=== PATIENT | male | born 1995 | race Caucasian/White ===

== ENCOUNTER 2019-03-28 01:18 | Emergency (ER) | payer OTHER ==
[~2019-03-28] VITALS: Ht 172.7 cm; Wt 76.4 kg
[2019-03-28 01:27] VITALS: BP 148/88; TEMP 97
[2019-03-28 03:21] LABS: BASO # 0.1 (0.0-0.2); BASO % 0.9 % (0.0-2.0); EOS # 0.2 (0.0-0.7); EOS % 2.8 % (0-4.0); GRAN # 3.2 (1.4-6.5); GRAN % 56.1 % (42.2-75.2); HEMATOCRIT 45.8 % (42.0-52.0); HEMOGLOBIN 16.1 g/dl (13.5-18.0); LYMPH # 1.7 (1.2-3.4); LYMPH % 29.4 % (20.0-51.0); MEAN CELL VOLUME 86 fl (80.0-100.0); MEAN CORPUSCULAR HEMOGLOBIN 30 pg (27.0-31.0); MEAN CORPUSCULAR HGB CONC 35 g/dl (33.0-37.0); MEAN PLATELET VOLUME 10.1 fl (7.4-10.4); MONO # 0.6 (0.1-0.6); MONO % 10.4 % (1.7-9.3); PLATELET COUNT 225 K/mm3 (130-400); REDCELL DISTRIBUTION WIDTH-CV 12.5 % (11.5-14.5)
[2019-03-28 03:27] LABS: ALBUMIN 4.7 gm/dL (3.5-5.0); BILIRUBIN,TOTAL 1.3 mg/dL (0.0-1.0); CALCIUM 9.2 mg/dL (8.4-10.2); CREATININE, serum 0.89 (0.66-1.25); POTASSIUM 4.2 mmol/L (3.4-5.0); TOTAL PROTEIN 7.5 gm/dL (6.4-8.2)
[2019-03-28 04:55] VITALS: PULSE 80
== END 2019-03-28 04:55 | disposition home or self-care (01) ==
LOC: COL.ER 01:18
PROVIDERS: Emergency Medicine
DX: R11.10 Vomiting, unspecified (principal); E86.9 Volume depletion, unspecified
CPT/HCPCS: J2405; J3010; J7030

== ENCOUNTER 2021-05-15 00:58 | Emergency (ER) | payer BC ==
[~2021-05-15] VITALS: Ht 175.3 cm; Wt 75.9 kg
[2021-05-15 01:04] VITALS: TEMP 98.3
[2021-05-15 01:39] LABS: HEMATOCRIT 46.8 % (42.0-52.0); HEMOGLOBIN 16.8 g/dl (13.5-18.0); MEAN CELL VOLUME 85 fl (80.0-100.0); MEAN CORPUSCULAR HEMOGLOBIN 30 pg (27.0-31.0); MEAN CORPUSCULAR HGB CONC 36 g/dl (33.0-37.0); MEAN PLATELET VOLUME 9.7 fl (7.4-10.4); PLATELET COUNT 235 K/mm3 (130-400); RED BLOOD COUNT 5.52 M/mm3 (4.20-5.60); REDCELL DISTRIBUTION WIDTH-CV 11.5 % (11.5-14.5)
[2021-05-15 02:00] LABS: ALANINE AMINOTRANSFERASE 13 U/L (0-55); ALBUMIN 4.8 gm/dL (3.5-5.0); ALKALINE PHOSPHATASE 51 U/L (40-150); ANION GAP 19 mmol/L (7-16); AST,SGOT 17 U/L (5-34); BILIRUBIN,TOTAL 1.4 mg/dL (0.2-1.2); BLOOD UREA NITROGEN 12 mg/dL (9-21); C-REACTIVE PROTEIN 2.81 mg/dL (0.00-0.50); CARBON DIOXIDE 15 mmol/L (22-29); CHLORIDE 101 mmol/L (98-107); CREATININE, serum 1.05 mg/dL (0.72-1.25); GLUCOSE 96 mg/dL (70-99); LIPASE < 10 U/L (8-78); POTASSIUM 4.2 mmol/L (3.5-4.5); SODIUM 135 mmol/L (136-145); TOTAL PROTEIN 7.6 gm/dL (6.2-8.1)
[2021-05-15 02:19] LABS: BAND 6 % (0-10); EOSINOPHIL 2 % (0-4); LYMPHOCYTE 5 % (20.0-51.0); NEUTROPHILS 86 % (42.0-75.2); PLATELET ESTIMATE NORMAL (NORMAL)
[2021-05-15 02:31] LABS: COLLECTION METHOD CLEAN CATCH
[2021-05-15 02:38] LABS: PH 5 (5-8); SQUAMOUS EPITHELIAL None Seen /hpf (0-10); URINE APPEARANCE Clear (CLEAR/HAZY); URINE BACTERIA None Seen (NONE SEEN); URINE BILIRUBIN Negative (NEGATIVE); URINE BLOOD Negative (NEGATIVE); URINE COLOR Yellow (YELLOW); URINE GLUCOSE Negative (NEGATIVE); URINE KETONE 2+ (NEGATIVE); URINE LEUKOCYTE ESTERASE Negative (NEGATIVE); URINE NITRATE Negative (NEGATIVE); URINE PROTEIN(semi-quant) 1+ (NEGATIVE); URINE RBC None Seen /hpf (0-2); URINE UROBILINOGEN Negative (NEGATIVE)
[2021-05-15] MEDS ORDERED: ZOFRAN ODT4 MG PO (03:51)
[2021-05-15 04:16] VITALS: BP 137/96; PULSE 90
== END 2021-05-15 04:14 | disposition home or self-care (01) ==
LOC: COL.ER 00:58
PROVIDERS: Nurse Practitioner Primary Care
DX: R11.2 Nausea with vomiting, unspecified (principal)
CPT/HCPCS: J1885; J2405; J7030; Q9967